=== PATIENT | male | born 1955 | race Caucasian/White ===

== ENCOUNTER 2016-12-08 01:18 | Inpatient (IN) | payer OTHER ==
[~2016-12-08] VITALS: Ht 160 cm; Wt 59.0 kg
[2016-12-08] VITALS (10 sets, daily range): BP systolic 102–172; BP diastolic 53–92; PULSE 76–96; RESP 17–19; Ht 160 cm; Wt 59.0 kg
[~2016-12-08 01:18] MED LIST: ATOR40TA68 PO; CARV3.1260 PO; CLOP75TA27 PO; GABA300C16 PO; METF-480 PO; NITR0.4T6 SL; OMEP20CA9 PO; QUIN40TA PO; SITA100T8 PO
--- NOTE | 2016-12-08 01:37 | ERA ---
ER Documentation Chief Complaint Date/Time DATE: 12/08/16 TIME: 01:36 Chief Complaint chest pain HPI The patient is a 61-year-old male, presenting to the ER because of left-sided chest pain that began about 11:30 PM while he was laying down, 02/14. He then took 3 nitroglycerin with relief however her chest pain came back. Has similar symptoms previously last year when he was found to have TIA. He also complained of bitemporal and diffuse headache that began about the same time, . He denies fever, chills, syncope, near syncope, neck pain, chest pain with exertion or vomiting or diaphoresis. He also complained of intermittent epigastric abdominal pain for the last couple days but denied any abdominal pain at this time. He has increased stress at home, denies smoking or drinking Past medical history: Dyslipidemia, diabetes mellitus, hypertension, history of CVA with minimal left-sided weakness, anemia Past surgical history: Cholecystectomy ROS All systems reviewed and are negative except as per history of present illness. Medications Home Meds Active Scripts Clopidogrel Bisulfate (Clopidogrel) 75 Mg Tablet, 75 MG PO DAILY, #30 TAB Prov:CESAR RUSSELL MD 06/03/16 Atorvastatin* (Atorvastatin*) 40 Mg Tablet, 40 MG PO HS, #30 TAB Prov:CESAR RUSSELL MD 06/03/16 Nitroglycerin* (Nitroglycerin* SL) 0.4 Mg Tab.subl, 0.4 MG SL Q5MIN Y for CHEST PAIN, #30 BOTTLE Prov:NICOLA GILL MD 05/28/15 Reported Medications Carvedilol* (Carvedilol*) 3.125 Mg Tablet, 3.125 MG PO BID, #60 TAB 06/01/16 Gabapentin* (Gabapentin*) 300 Mg Capsule, 300 MG PO BID, CAP 07/13/15 Sitagliptin* (Januvia*) 100 Mg Tablet, 100 MG PO DAILY, TAB 05/27/15 Omeprazole* (Prilosec*) 20 Mg Capsule.dr, 20 MG PO DAILY, CAP 05/27/15 Quinapril Hcl (Accupril) 40 Mg Tablet, 40 MG PO DAILY, TAB 05/27/15 Metformin* (Glucophage*) 850 Mg Tablet, 850 MG PO BID, TAB 05/27/15 Allergies Allergies: Coded Allergies: No Known Allergy (Unverified , 06/03/16) PMhx/Soc History of Surgery: Yes (CHOLECYSTECTOMY, HERNIA REPAIR, GALLSTONE REMOVAL) Anesthesia Reaction: No Hx Neurological Disorder: No Hx Respiratory Disorders: No Hx Cardiac Disorders: No Hx Psychiatric Problems: No Hx Miscellaneous Medical Probl: Yes (HTN, DM, HYPERLIPIDEMIA) Hx Alcohol Use: No Hx Substance Use: No Hx Tobacco Use: No Physical Exam Vitals Vital Signs Date Time Temp Pulse Resp B/P Pulse Ox O2 Delivery O2 Flow Rate FiO2 12/08/16 01:27 97.8 79 20 224/102 100 Physical Exam Const: No acute distress. Head: Atraumatic. Eyes: Normal Conjunctiva. ENT: Normal External Ears, Nose and Mouth. Neck: Full range of motion. No meningismus. Resp: Clear to auscultation bilaterally. Cardio: Regular rate and rhythm, no murmurs. Abd: Soft, non distended, normal bowel sounds, non tender. Skin: No petechiae or rashes. Back: No midline or flank tenderness. Ext: No cyanosis, or edema. Neur: Awake and alert. No focal deficit Psych: Normal Mood and Affect. Result Diagram: 12/08/16 0145 12/08/16 0145 Results 24 hrs Laboratory Tests Test 12/08/16 01:45 12/08/16 02:53 Activated Partial Thromboplast Time 27.5Sec Alanine Aminotransferase (ALT/SGPT) 25IU/L Albumin 3.6g/dl Albumin/Globulin Ratio 1.16 Alkaline Phosphatase 156IU/L Anion Gap 16 Aspartate Amino Transf (AST/SGOT) 18IU/L Basophils # 0.010^3/ul Basophils % 0.4% Blood Urea Nitrogen 32mg/dl Calcium Level 9.0mg/dl Carbon Dioxide Level 23mmol/L Chloride Level 102mmol/L Creatinine 1.77mg/dl Direct Bilirubin 0.00mg/dl Eosinophils # 0.310^3/ul Eosinophils % 4.5% Globulin 3.10g/dl Glucose Level 384mg/dl Hematocrit 30.1% Hemoglobin 10.9g/dl INR International Normalized Ratio 0.97 Indirect Bilirubin 0.0mg/dl Lipase 23U/L Lymphocytes # 2.710^3/ul Lymphocytes % 38.1% Mean Corpuscular Hemoglobin 31.1pg Mean Corpuscular Hemoglobin Concent 36.2g/dl Mean Corpuscular Volume 86.0fl Mean Platelet Volume 10.9fl Monocytes # 0.610^3/ul Monocytes % 8.2% Neutrophils # 3.510^3/ul Neutrophils % 48.5% Nucleated Red Blood Cells # 0.010^3/ul Nucleated Red Blood Cells % 0.0/100WBC Platelet Count 80052^3/UL Potassium Level 4.1mmol/L Prothrombin Time 12.9Sec Prothrombin Time Ratio 1.0 Red Blood Count 3.5010^6/ul Red Cell Distribution Width 12.3% Sodium Level 137mmol/L Total Bilirubin 0.0mg/dl Total Protein 6.7g/dl Troponin I 0.027ng/ml White Blood Count 7.210^3/ul Bedside Urine Blood 1+ Bedside Urine Glucose (UA) 0.50% Bedside Urine Ketones (LAB) Trace Bedside Urine Leukocyte Esterase (L Negative Bedside Urine Nitrite (LAB) Negative Bedside Urine Protein (LAB) 3+ Bedside Urine pH (LAB) 5.5 Current Medications Medications (Trade) Dose Ordered Sig/Marilee Route PRN Reason Start Time Stop Time Status Last Admin Dose Admin Nitroglycerin (Nitroglycerin 2% Oint) 1 inch ONCE ONCE TD 12/08/16 02:00 12/08/16 02:01 DC 12/08/16 01:52 Aspirin (Aspirin) 325 mg ONCE ONCE PO 12/08/16 03:00 12/08/16 03:01 DC Procedures/MDM EKG: Read by emergency physician Rate/Rhythm: Normal Sinus Rhythm 75 beats/min QRS, ST, T-waves: No ST elevation, no T inversion Impression: Normal EKG [place] [id number] Radiology Main Line: [phone] DIAGNOSTIC IMAGING REPORT Patient: YAJAIRA KING : 1955 Age: 61 Sex: M MR #: [id number] DOS: 12/08/16 0145 Ordering MD: LING HOUSE MD Location: E/R Room/Bed: PROCEDURE: XR Chest. CLINICAL INDICATION: Abdominal pain. TECHNIQUE: Single frontal view of the chest was obtained COMPARISON: 06/01/2016. FINDINGS: The heart and mediastinum are within normal limits. The lungs are clear. There is no pleural effusion or pneumothorax. IMPRESSION: No acute disease. RPTAT: [facility] Physician Daniel Date Time Electronically viewed and signed by Physician Daniel on 12/08/2016 02:46 RS/ CC: LING HOUSE MD [place] [id number] Radiology Main Line: [phone] DIAGNOSTIC IMAGING REPORT Patient: YAJAIRA KING : 1955 Age: 61 Sex: M MR #: [id number] DOS: 12/08/16 0145 Ordering MD: LING HOUSE MD Location: E/R Room/Bed: PROCEDURE: CT head, without contrast. CLINICAL INDICATION: Headache. TECHNIQUE: Noncontrast CT examination of the head, with axial, sagittal and coronal reformatted images. Automated dose exposure control was employed. CTDI: 39.39 mGy and DLP: 634.23 mGy-cm. COMPARISON: 06/01/2016 FINDINGS: Chronic changes of atrophy and small vessel disease white matter. No acute hemorrhage. Subarachnoid spaces are substantially preserved and symmetric. Ventricles are unremarkable. No mass effect. Villalpando-white matter distinction is preserved without evident decreased attenuation to suggest acute or recent infarct. Sinuses and osseous structures are unremarkable. IMPRESSION: Chronic changes of atrophy and small vessel disease white matter, and otherwise , no acute process in the head RPTAT: [facility] Leobardo Silverman Physician Date Time Electronically viewed and signed by Leobardo Silverman Physician on 12/08/2016 02:55 RS/ CC: LING HOUSE MD MEDICAL MAKING DECISION: The patient is a 61-year-old male with multiple cardiac risk factors, presenting with acute chest pain that is concerning for acute ACS, acute kidney injury. He was treated with aspirin 325 mg p.o. and 1 inch of nitroglycerin ointment with good response. Blood pressure improved. The differential diagnoses considered include but are not limited to acute coronary syndrome, acute myocardial infarction, pericarditis, pulmonary embolism , aortic dissection, pneumonia, pleural effusion, pneumothorax, GERD, chest wall pain. Departure Diagnosis: Primary Impression: Chest pain Additional Impressions: Acute kidney injury Accelerated hypertension Anemia Condition: Stable Comments I discussed the findings with the patient. I discussed the patient with the on- call hospitalist Dr. Gill who was made aware of the lab, the treatment, the patient condition. The patient is admitted to telemetry at 3 AM LING HOUSE MD Dec 08, 2016 01:37
[2016-12-08] MEDS ORDERED: NITROGLYCERIN 2% 1 GM OINT PKT TD ONE (02:00)
[2016-12-08 02:25] LABS: ADD SCAN DIFF NO
[2016-12-08 02:29] LABS: BASOPHILS % 0.4 % (0.0-2.0); EOSINOPHILS # 0.3 10^3/ul (0.0-0.5); EOSINOPHILS % 4.5 % (0.0-7.0); HEMATOCRIT 30.1 % (42.0-52.0); HEMOGLOBIN 10.9 g/dl (14.0-18.0); LYMPHOCYTES # 2.7 10^3/ul (0.8-2.9); LYMPHOCYTES % 38.1 % (15.0-51.0); MEAN CORPUSCULAR HEMOGLOBIN 31.1 pg (29.0-33.0); MEAN CORPUSCULAR HGB CONC 36.2 g/dl (32.0-37.0); MEAN PLATELET VOLUME 10.9 fl (7.4-10.4); MONOCYTE # 0.6 10^3/ul (0.3-0.9); MONOCYTES % 8.2 % (0.0-11.0); NEUTROPHIL # 3.5 10^3/ul (1.6-7.5); NEUTROPHILS % 48.5 % (39.0-77.0); PLATELET COUNT 206 10^3/UL (140-415); RED CELL DISTRIBUTION WIDTH 12.3 % (11.5-14.5); WHITE BLOOD COUNT 7.2 10^3/ul (4.8-10.8)
[2016-12-08 02:37] LABS: INR 0.97; PROTIME 12.9 Sec (12.2-14.2)
[2016-12-08 02:38] LABS: PARTIAL THROMBOPLASTIN TIME 27.5 Sec (25.0-35.0)
[2016-12-08 02:40] LABS: ALBUMIN 3.6 g/dl (3.3-4.9)
[2016-12-08 02:41] LABS: POTASSIUM 4.1 mmol/L (3.5-5.1)
[2016-12-08 02:43] LABS: CREATININE 1.77 mg/dl (0.61-1.24)
[2016-12-08 02:44] LABS: ALBUMIN/GLOBULIN RATIO 1.16; TOTAL PROTEIN 6.7 g/dl (6.1-8.1)
--- NOTE | 2016-12-08 02:47 | RADRPT ---
PROCEDURE: XR Chest. CLINICAL INDICATION: Abdominal pain. TECHNIQUE: Single frontal view of the chest was obtained COMPARISON: 06/01/2016. FINDINGS: The heart and mediastinum are within normal limits. The lungs are clear. There is no pleural effusion or pneumothorax. IMPRESSION: No acute disease. RPTAT: [facility] Physician Daniel Date Time Electronically viewed and signed by Leobardo Silverman Physician on 12/08/2016 02:46 RS/
[2016-12-08 02:52] LABS: URINE BLOOD (Dip) POC 1+ (NEGATIVE)
[2016-12-08 02:55] LABS: TROPONIN-I 0.027 ng/ml (0.00-0.12)
--- NOTE | 2016-12-08 02:55 | RADRPT ---
PROCEDURE: CT head, without contrast. CLINICAL INDICATION: Headache. TECHNIQUE: Noncontrast CT examination of the head, with axial, sagittal and coronal reformatted im ages. Automated dose exposure control was employed. CTDI: 39.39 mGy and DLP: 634.23 mGy-cm. COMPARISON: 06/01/2016 FINDINGS: Chronic changes of atrophy and small vessel disease white matter. No acute hemorrhage. Subarachnoid spaces are substantially preserved and symmetric. Ventricles ar e unremarkable. No mass effect. Villalpando-white matter distinction is preserved without evident decreased attenuation t o suggest acute or recent infarct. Sinuses and osseous structures are unremarkable. IMPRESSION: Chronic changes of atrophy and small vessel disease white matter, and otherwise, no acute process in the head RPTAT: [facility] Physician Daniel Date Time Electronically viewed and signed by Physician Daniel on 12/08/2016 02:55 RS/
[2016-12-08] MEDS ORDERED: ASPIRIN 325 MG TAB PO ONE (03:00)
[2016-12-08] MEDS ORDERED: morphine 4 MG/ML VIAL IV PRN (04:30)
[2016-12-08] MEDS ORDERED: GLUCOSE GEL 15 GRAM TUBE BUCCAL PRN (05:00)
[2016-12-08] MEDS ORDERED: DEXTROSE 50% 50 ML SYRINGE IV PRN ×2 (05:00)
[2016-12-08] MEDS ORDERED: GLUCOSE GEL 15 GRAM TUBE PO PRN ×2 (05:00)
[2016-12-08] MEDS ORDERED: GLUCAGON 1 MG INJ IM PRN (05:00)
[2016-12-08] MEDS: hydrALAzine 20 MG INJ IV PRN (06:10)
[2016-12-08] MEDS ORDERED: INSULIN GLARGINE [LANtus] 3 ML PEN SC SCH (08:00)
[2016-12-08] MEDS: GABAPENTIN 300 MG CAP PO SCH ×2 (08:18→22:44)
[2016-12-08] MEDS: ASPIRIN 81 MG TAB PO SCH (08:18)
[2016-12-08] MEDS: metFORMIN 850 MG TAB GTB SCH ×2 (08:18→17:28)
[2016-12-08] MEDS: CLOPIDOGREL 75 MG TAB PO SCH (08:18)
[2016-12-08] MEDS: HEPARIN 5,000 UNIT/0.5 ML SYG SC SCH ×2 (08:20→22:55)
[2016-12-08] MEDS: INSULIN ASPART [NOVOLOG] 3 ML PEN SC SCH ×4 (08:22→22:54)
[2016-12-08] MEDS ORDERED: INSULIN ASPART [NOVOLOG] 3 ML PEN SC SCH (09:00)
[2016-12-08] MEDS ORDERED: BENAZEPRIL 40 MG TAB PO SCH (09:00)
[2016-12-08] MEDS ORDERED: QUINAPRIL HCL 40 MG PO SCH (09:00)
[2016-12-08 09:12] LABS: ADD SCAN DIFF NO
[2016-12-08 09:16] LABS: BASOPHIL # 0.1 10^3/ul (0.0-0.1); BASOPHILS % 1.1 % (0.0-2.0); EOSINOPHILS # 0.2 10^3/ul (0.0-0.5); EOSINOPHILS % 5.1 % (0.0-7.0); HEMATOCRIT 29.7 % (42.0-52.0); HEMOGLOBIN 10.4 g/dl (14.0-18.0); LYMPHOCYTES # 1.5 10^3/ul (0.8-2.9); LYMPHOCYTES % 32.6 % (15.0-51.0); MEAN CORPUSCULAR HEMOGLOBIN 30.5 pg (29.0-33.0); MEAN CORPUSCULAR VOLUME 87.1 fl (82.0-101.0); MEAN PLATELET VOLUME 10.6 fl (7.4-10.4); MONOCYTE # 0.3 10^3/ul (0.3-0.9); NEUTROPHIL # 2.5 10^3/ul (1.6-7.5); NEUTROPHILS % 53.8 % (39.0-77.0); PLATELET COUNT 187 10^3/UL (140-415); RED BLOOD COUNT 3.41 10^6/ul (4.70-6.10); RED CELL DISTRIBUTION WIDTH 12.6 % (11.5-14.5); WHITE BLOOD COUNT 4.7 10^3/ul (4.8-10.8)
[2016-12-08 09:28] LABS: ALBUMIN 3.1 g/dl (3.3-4.9)
[2016-12-08 09:29] LABS: POTASSIUM 3.6 mmol/L (3.5-5.1)
[2016-12-08 09:30] LABS: PHOSPHORUS 3.2 mg/dl (2.5-4.9)
[2016-12-08 09:31] LABS: ALBUMIN/GLOBULIN RATIO 0.88; BILIRUBIN,INDIRECT 0.2 mg/dl (0-1.1); BILIRUBIN,TOTAL 0.2 mg/dl (0.2-1.3); CHOL/HDL RATIO 3.7 RATIO; CREATININE 1.48 mg/dl (0.61-1.24); MAGNESIUM 1.8 mg/dl (1.7-2.5); TOTAL PROTEIN 6.6 g/dl (6.1-8.1)
[2016-12-08 09:32] LABS: CALCIUM 8.8 mg/dl (8.4-10.2)
--- NOTE | 2016-12-08 12:19 | HP ---
Date/Time of Note Date/Time of Note DATE: 12/08/16 TIME: 12:17 Assessment/Plan VTE Prophylaxis VTE Prophylaxis Intervention: heparin Lines/Catheters IV Catheter Type (from Nrsg): Saline Lock Assessment/Plan Assessment/Plan 1. Chest pain, r/o ACS - oxygen, BB, and PRN NTG and morphine - trend trops - f/u 2D-echo - cardiology consult 2. Hypertensive Urgency - adjust BP meds for better control 3. history of CVA with minimal left-sided weakness - cont anti-platelets 4. Presumed Acute on CKD - monitor closely - nephrology consult and renal consult as needed 5. Diabetes:poorly controlled - pt reported non-compliance with meds saying he forgets sometimes. this applies to his BP meds as well. - Adjust insulin as needed 6. Dyslipidemia - cont med - check lipid profile HPI/ROS Admit Date/Time Admit Date/Time Dec 08, 2016 at 03:03 Hx of Present Illness The patient is a 61-year-old male,with hx of Dyslipidemia, diabetes mellitus, hypertension, history of CVA with minimal left-sided weakness, anemia presenting to the ER because of left-sided chest pain that began about 11:30 PM while he was laying down, 02/14. He then took 3 nitroglycerin with relief however her chest pain came back. Has similar symptoms previously last year when he was found to have TIA. He also complained of bitemporal and diffuse headache that began about the same time, 03/17. He denies fever, chills, syncope , near syncope, neck pain, chest pain with exertion or vomiting or diaphoresis. He also complained of intermittent epigastric abdominal pain for the last couple days but denied any abdominal pain at this time. He has increased stress at home, denies smoking or drinking. In ER, BP was elevated 224/101. trops x 1 neg and EKG with no ST-T wav abnormalities. . PMH/Family/Social Past Surgical History Past Surgical Hx: cholecystectomy, other Social History Smoking Status: Never smoker Exam/Review of Systems Vital Signs Vitals Vital Signs Date Time Temp Pulse Resp B/P Pulse Ox O2 Delivery O2 Flow Rate FiO2 12/08/16 11:33 97.4 81 18 102/53 98 12/08/16 03:47 Room Air Intake and Output 12/07/16 12/07/16 12/08/16 15:00 23:00 07:00 Intake Total 100 ml Balance 100 ml Exam Constitutional: alert, oriented, well developed Head: atraumatic, normocephalic Eyes: EOMI, PERRL Respiratory: clear to auscultation, normal air movement Cardiovascular: nl pulses, regular rate and rhythm Gastrointestinal: non-tender, soft Extremities: normal pulses Labs Result Diagram: 12/08/1653 12/08/16 0853 Medications Medications Current Medications Aspirin (Aspirin) 81 mg DAILY PO Last administered on 12/08/16 08:18; Admin Dose 81 MG; Start 12/08/16 at 09:00 Hydralazine HCl (Apresoline) 10 mg Q6H PRN IV HTN Last administered on 06:10; Admin Dose 10 MG; Start 12/08/16 at 04:30 Morphine Sulfate (morphine) 3 mg Q4H PRN IV PAIN; Start 12/08/16 at 04:30 Heparin Sodium (Porcine) (Heparin (5000 Units/0.5 ml)) 5,000 unit BID SC Last administered on 12/08/16 08:20; Admin Dose 5,000 UNIT; Start 12/08/16 at 09:00 Insulin Glargine (Lantus) 10 unit DAILY@08 SC Last administered on 12/08/16 08: 24; Admin Dose 10 UNIT; Start 12/08/16 at 08:00 Miscellaneous Information 1 ea NOTE XX ; Start 12/08/16 at 05:00 Glucose (Glutose) 15 gm Q15M PRN PO DECREASED GLUCOSE; Start 12/08/16 at 05:00 Glucose (Glutose) 22.5 gm Q15M PRN PO DECREASED GLUCOSE; Start 12/08/16 at 05:00 Dextrose (D50w Syringe) 25 ml Q15M PRN IV DECREASED GLUCOSE; Start 12/08/16 at 05:00 Dextrose (D50w Syringe) 50 ml Q15M PRN IV DECREASED GLUCOSE; Start 12/08/16 at 05:00 Glucagon (Glucagen) 1 mg Q15M PRN IM DECREASED GLUCOSE; Start 12/08/16 at 05:00 Glucose (Glutose) 15 gm Q15M PRN BUCCAL DECREASED GLUCOSE; Start 12/08/16 at 05: 00 Diagnostic Test (Pha) (Accucheck) 1 ea 02 XX ; Start 12/09/16 at 02:00 Atorvastatin Calcium (Lipitor) 40 mg HS PO ; Start 12/08/16 at 21:00 Gabapentin (Neurontin) 300 mg BID PO Last administered on 12/08/16 08:18; Admin Dose 300 MG; Start 12/08/16 at 09:00 Carvedilol (Coreg) 6.25 mg BID PO Last administered on 12/08/16 08:18; Admin Dose 6.25 MG; Start 12/08/16 at 09:00 Clopidogrel Bisulfate (plaVIX) 75 mg DAILY PO Last administered on 12/08/16 08: 18; Admin Dose 75 MG; Start 12/08/16 at 09:00 Benazepril HCl (Lotensin) 40 mg DAILY PO ; Start 12/08/16 at 09:00 NICOLA GILL MD Dec 08, 2016 12:19
--- NOTE | 2016-12-08 13:46 | PN ---
Date/Time of Note Date/Time of Note DATE: 12/08/16 TIME: 13:38 Assessment/Plan VTE Prophylaxis VTE Prophylaxis Intervention: heparin Lines/Catheters IV Catheter Type (from Nrsg): Saline Lock Assessment/Plan Assessment/Plan 1. Chest pain, r/o ACS, follow up with troponin/echo, cardiology consultation 2. Hypertensive Urgency, improved 3. history of CVA with minimal left-sided weakness, cont anti-platelets 4. Acute on CKD, follow up with BMP 5. Diabetes:poorly controlled, noncompliance, on metformin and insulin 6. Dyslipidemia, on lipitor 7. Normocytic anemia, CKD related, follow up with CBC 8. DVT prophylaxis: heparin Subjective 24 Hr Interval Summary Free Text/Dictation intermittent left sided chest pain since 9 am Exam/Review of Systems Vital Signs Vitals Vital Signs Date Time Temp Pulse Resp B/P Pulse Ox O2 Delivery O2 Flow Rate FiO2 12/08/16 12:35 76 12/08/16 11:33 97.4 18 102/53 98 12/08/16 03:47 Room Air Intake and Output 12/07/16 12/07/16 12/08/16 15:00 23:00 07:00 Intake Total 100 ml Balance 100 ml Exam Constitutional: alert, oriented, well developed Psych: nl mood/affect, no complaints Head: atraumatic, normocephalic Eyes: EOMI, PERRL, nl conjunctiva, nl lids ENMT: mucosa pink and moist, nl external ears & nose, nl lips & teeth, nl nasal mucosa & septum Neck: non-tender, supple Respiratory: clear to auscultation, normal air movement, No congested cough, No crackles/rales, No diminished breath sounds, No intercostal retraction, No labored breathing, No other, No respirations, No tactile fremitus, No wheezing Cardiovascular: nl pulses, regular rate and rhythm, No S3, No S4, No bruits, No diastolic murmur, No edema, No gallop, No irregular rhythm, No jugular venous distention (JVD), No murmurs/extra sounds, No other, No rub, No systolic murmur Gastrointestinal: nl liver, spleen, non-tender, soft, No ascites, No bowel sounds, No distended, No firm, No hepatomegaly, No mass , No other, No rebound or guarding, No splenomegaly, No surgical scars, No tender Musculoskeletal: nl extremities to inspection Extremities: normal pulses, No calf tenderness, No clubbing, No cyanosis, No edema, No other, No palpable cord, No pitting pedal edema, No tenderness Neurological: RETORT FEEDER GROUND BONE II-XII intact, nl mental status, nl speech, other (mildly weakness on left) Skin: nl turgor Lymph: nl lymph nodes Results Result Diagram: 12/08/16 0853 12/08/16 1228 Results 24 hrs Laboratory Tests Test 12/08/16 01:45 12/08/16 02:53 12/08/16 08:01 12/08/16 08:53 Activated Partial Thromboplast Time 27.5 Alanine Aminotransferase (ALT/SGPT) 25 22 Albumin 3.6 3.1 L Albumin/Globulin Ratio 1.16 0.88 Alkaline Phosphatase 156 H 132 H Anion Gap 16 17 H Aspartate Amino Transf (AST/SGOT) 18 16 Basophils # 0.0 0.1 Basophils % 0.4 1.1 Blood Urea Nitrogen 32 H 30 H Calcium Level 9.0 8.8 Carbon Dioxide Level 23 21 Chloride Level 102 104 Creatinine 1.77 H 1.48 H Direct Bilirubin 0.00 0.00 Eosinophils # 0.3 0.2 Eosinophils % 4.5 5.1 Globulin 3.10 3.50 H Glucose Level 384 H 405 *H Hematocrit 30.1 L 29.7 L Hemoglobin 10.9 L 10.4 L INR International Normalized Ratio 0.97 Indirect Bilirubin 0.0 0.2 Lipase 23 Lymphocytes # 2.7 1.5 Lymphocytes % 38.1 32.6 Mean Corpuscular Hemoglobin 31.1 30.5 Mean Corpuscular Hemoglobin Concent 36.2 35.0 Mean Corpuscular Volume 86.0 87.1 Mean Platelet Volume 10.9 #H 10.6 H Monocytes # 0.6 0.3 Monocytes % 8.2 7.0 Neutrophils # 3.5 2.5 Neutrophils % 48.5 53.8 Nucleated Red Blood Cells # 0.0 0.0 Nucleated Red Blood Cells % 0.0 0.0 Platelet Count 206 187 Potassium Level 4.1 3.6 Prothrombin Time 12.9 Prothrombin Time Ratio 1.0 Red Blood Count 3.50 L 3.41 L Red Cell Distribution Width 12.3 12.6 Sodium Level 137 138 Total Bilirubin 0.0 L 0.2 Total Protein 6.7 6.6 Troponin I 0.027 < 0.012 White Blood Count 7.2 # 4.7 #L Bedside Urine Blood 1+ H Bedside Urine Glucose (UA) 0.50% H Bedside Urine Ketones (LAB) Trace H Bedside Urine Leukocyte Esterase (L Negative Bedside Urine Nitrite (LAB) Negative Bedside Urine Protein (LAB) 3+ H Bedside Urine pH (LAB) 5.5 Bedside Glucose 468 *H Cholesterol Level 121 Cholesterol/HDL Ratio 3.7 HDL Cholesterol 32 Hemoglobin A1c 13.3 H LDL Cholesterol, Calculated 51 Magnesium Level 1.8 Phosphorus Level 3.2 Triglycerides Level 190 H Test 12/08/16 12:04 12/08/16 12:28 Bedside Glucose 435 *H Glucose Level 363 H Medications Medications Current Medications Aspirin (Aspirin) 81 mg DAILY PO Last administered on 12/08/16 08:18; Admin Dose 81 MG; Start 12/08/16 at 09:00 Hydralazine HCl (Apresoline) 10 mg Q6H PRN IV HTN Last administered on 06:10; Admin Dose 10 MG; Start 12/08/16 at 04:30 Morphine Sulfate (morphine) 3 mg Q4H PRN IV PAIN; Start 12/08/16 at 04:30 Heparin Sodium (Porcine) (Heparin (5000 Units/0.5 ml)) 5,000 unit BID SC Last administered on 12/08/16 08:20; Admin Dose 5,000 UNIT; Start 12/08/16 at 09:00 Insulin Glargine (Lantus) 10 unit DAILY@08 SC Last administered on 12/08/16 08: 24; Admin Dose 10 UNIT; Start 12/08/16 at 08:00 Miscellaneous Information 1 ea NOTE XX ; Start 12/08/16 at 05:00 Glucose (Glutose) 15 gm Q15M PRN PO DECREASED GLUCOSE; Start 12/08/16 at 05:00 Glucose (Glutose) 22.5 gm Q15M PRN PO DECREASED GLUCOSE; Start 12/08/16 at 05:00 Dextrose (D50w Syringe) 25 ml Q15M PRN IV DECREASED GLUCOSE; Start 12/08/16 at 05:00 Dextrose (D50w Syringe) 50 ml Q15M PRN IV DECREASED GLUCOSE; Start 12/08/16 at 05:00 Glucagon (Glucagen) 1 mg Q15M PRN IM DECREASED GLUCOSE; Start 12/08/16 at 05:00 Glucose (Glutose) 15 gm Q15M PRN BUCCAL DECREASED GLUCOSE; Start 12/08/16 at 05: 00 Diagnostic Test (Pha) (Accucheck) 1 ea 02 XX ; Start 12/09/16 at 02:00 Atorvastatin Calcium (Lipitor) 40 mg HS PO ; Start 12/08/16 at 21:00 Gabapentin (Neurontin) 300 mg BID PO Last administered on 12/08/16 08:18; Admin Dose 300 MG; Start 12/08/16 at 09:00 Carvedilol (Coreg) 6.25 mg BID PO Last administered on 12/08/16 08:18; Admin Dose 6.25 MG; Start 12/08/16 at 09:00 Clopidogrel Bisulfate (plaVIX) 75 mg DAILY PO Last administered on 12/08/16 08: 18; Admin Dose 75 MG; Start 12/08/16 at 09:00 Benazepril HCl (Lotensin) 40 mg DAILY PO Last administered on 12/08/16 12:37; Admin Dose 40 MG; Start 12/08/16 at 09:00 NANNETTE CHRISTIANSON MD Dec 08, 2016 13:46
--- NOTE | 2016-12-08 14:00 | CONS ---
Date/Time of Note Date/Time of Note DATE: 12/08/16 TIME: 13:52 Assessment/Plan Assessment/Plan Additional Assessment/Plan Hypertension urgency, improved Preserved ejection fraction Normal cardiac nuclear perfusion study January 2016 Diabetes, uncontrolled Hypertension, uncontrolled History of TIA -Patient with systolic blood pressure above 200. Pressure has improved since admission and with medications. Would continue Coreg, adjust RADHA inhibitor to twice daily dosing for better 24-hour coverage. Given his risk factors, would continue antiplatelet therapy and statin therapy if no contraindication. Patient's chest discomfort is reproducible with palpation. He had a nuclear cardiac perfusion study in January 2016 with no evidence of ischemia. First 2 sets of cardiac enzymes remain negative and ECG without any significant ischemic abnormalities. Awaiting third set of cardiac enzymes. Consultation Date/Type/Reason Admit Date/Time Dec 08, 2016 at 03:03 Type of Consultation: cv Reason for Consultation Hypertension and chest pain Hx of Present Illness This is a 61-year-old male with past medical history of diabetes, hypertension, dyslipidemia who presents with multiple complaints. Patient states last night, he had issues with headache and cloudy vision. He checked his blood pressure and was above 200. Afterwards she became anxious. Denies any shortness of breath but then developed neck pain, bilateral shoulder pain and radiating to the left axilla. Symptoms were sharp like and occasionally pinpoint. He took sublingual nitroglycerin with mild improvement in headache but was still present. His blood pressure still remained above 200 so he came to the emergency room for evaluation and care. He does admit to poor blood pressure and diabetes control. His blood pressure can range anywhere from 130s to over 200 on a weekly basis. He has frequent episodes of neck and chest discomfort. Pain is usually worse with moving his arms, going from side to side. Pain can be present at rest and with activity. Denies any abdominal pain currently or nausea. He still complains of mild chest pain currently which is right at his nipple. The pain is worse when he pushes in this region. 12 point review of systems was performed with all pertinent positives and negatives mentioned above and all else is negative Psychological: nl mood/affect, no complaints Past Medical History Medical History: diabetes, high cholesterol, hypertension Past Surgical History Past Surgical Hx: cholecystectomy, other Social History Alcohol Use: none Smoking Status: Never smoker Other Social History Not working Exam/Review of Systems Vital Signs Vitals Vital Signs Date Time Temp Pulse Resp B/P Pulse Ox O2 Delivery O2 Flow Rate FiO2 12/08/16 12:35 76 12/08/16 11:33 97.4 18 102/53 98 12/08/16 03:47 Room Air Intake and Output 12/07/16 12/07/16 12/08/16 15:00 23:00 07:00 Intake Total 100 ml Balance 100 ml Exam No apparent distress Constitutional: alert, oriented Head: normocephalic Neck: other (Pain of paracervical muscles with head flexion), supple Respiratory: clear to auscultation, normal air movement, other (No rales rhonchi or wheezing) Cardiovascular: other (S1-S2 heard), regular rate and rhythm Gastrointestinal: bowel sounds, non-tender, other (No guarding), soft Musculoskeletal: other (Pain with palpation bilateral shoulders, left side of chest wall and with left arm movements) Extremities: other (No edema or cyanosis) Results Result Diagram: 12/08/16 0853 12/08/16 1228 Results 24 hrs Laboratory Tests Test 12/08/16 01:45 12/08/16 02:53 12/08/16 08:01 12/08/16 08:53 Activated Partial Thromboplast Time 27.5 Alanine Aminotransferase (ALT/SGPT) 25 22 Albumin 3.6 3.1 L Albumin/Globulin Ratio 1.16 0.88 Alkaline Phosphatase 156 H 132 H Anion Gap 16 17 H Aspartate Amino Transf (AST/SGOT) 18 16 Basophils # 0.0 0.1 Basophils % 0.4 1.1 Blood Urea Nitrogen 32 H 30 H Calcium Level 9.0 8.8 Carbon Dioxide Level 23 21 Chloride Level 102 104 Creatinine 1.77 H 1.48 H Direct Bilirubin 0.00 0.00 Eosinophils # 0.3 0.2 Eosinophils % 4.5 5.1 Globulin 3.10 3.50 H Glucose Level 384 H 405 *H Hematocrit 30.1 L 29.7 L Hemoglobin 10.9 L 10.4 L INR International Normalized Ratio 0.97 Indirect Bilirubin 0.0 0.2 Lipase 23 Lymphocytes # 2.7 1.5 Lymphocytes % 38.1 32.6 Mean Corpuscular Hemoglobin 31.1 30.5 Mean Corpuscular Hemoglobin Concent 36.2 35.0 Mean Corpuscular Volume 86.0 87.1 Mean Platelet Volume 10.9 #H 10.6 H Monocytes # 0.6 0.3 Monocytes % 8.2 7.0 Neutrophils # 3.5 2.5 Neutrophils % 48.5 53.8 Nucleated Red Blood Cells # 0.0 0.0 Nucleated Red Blood Cells % 0.0 0.0 Platelet Count 206 187 Potassium Level 4.1 3.6 Prothrombin Time 12.9 Prothrombin Time Ratio 1.0 Red Blood Count 3.50 L 3.41 L Red Cell Distribution Width 12.3 12.6 Sodium Level 137 138 Total Bilirubin 0.0 L 0.2 Total Protein 6.7 6.6 Troponin I 0.027 < 0.012 White Blood Count 7.2 # 4.7 #L Bedside Urine Blood 1+ H Bedside Urine Glucose (UA) 0.50% H Bedside Urine Ketones (LAB) Trace H Bedside Urine Leukocyte Esterase (L Negative Bedside Urine Nitrite (LAB) Negative Bedside Urine Protein (LAB) 3+ H Bedside Urine pH (LAB) 5.5 Bedside Glucose 468 *H Cholesterol Level 121 Cholesterol/HDL Ratio 3.7 HDL Cholesterol 32 Hemoglobin A1c 13.3 H LDL Cholesterol, Calculated 51 Magnesium Level 1.8 Phosphorus Level 3.2 Triglycerides Level 190 H Test 12/08/16 12:04 12/08/16 12:28 Bedside Glucose 435 *H Glucose Level 363 H Medications Medications Current Medications Aspirin (Aspirin) 81 mg DAILY PO Last administered on 12/08/16 08:18; Admin Dose 81 MG; Start 12/08/16 at 09:00 Hydralazine HCl (Apresoline) 10 mg Q6H PRN IV HTN Last administered on 06:10; Admin Dose 10 MG; Start 12/08/16 at 04:30 Morphine Sulfate (morphine) 3 mg Q4H PRN IV PAIN; Start 12/08/16 at 04:30 Heparin Sodium (Porcine) (Heparin (5000 Units/0.5 ml)) 5,000 unit BID SC Last administered on 12/08/16 08:20; Admin Dose 5,000 UNIT; Start 12/08/16 at 09:00 Insulin Glargine (Lantus) 10 unit DAILY@08 SC Last administered on 12/08/16 08: 24; Admin Dose 10 UNIT; Start 12/08/16 at 08:00 Miscellaneous Information 1 ea NOTE XX ; Start 12/08/16 at 05:00 Glucose (Glutose) 15 gm Q15M PRN PO DECREASED GLUCOSE; Start 12/08/16 at 05:00 Glucose (Glutose) 22.5 gm Q15M PRN PO DECREASED GLUCOSE; Start 12/08/16 at 05:00 Dextrose (D50w Syringe) 25 ml Q15M PRN IV DECREASED GLUCOSE; Start 12/08/16 at 05:00 Dextrose (D50w Syringe) 50 ml Q15M PRN IV DECREASED GLUCOSE; Start 12/08/16 at 05:00 Glucagon (Glucagen) 1 mg Q15M PRN IM DECREASED GLUCOSE; Start 12/08/16 at 05:00 Glucose (Glutose) 15 gm Q15M PRN BUCCAL DECREASED GLUCOSE; Start 12/08/16 at 05: 00 Diagnostic Test (Pha) (Accucheck) 1 ea 02 XX ; Start 12/09/16 at 02:00 Atorvastatin Calcium (Lipitor) 40 mg HS PO ; Start 12/08/16 at 21:00 Gabapentin (Neurontin) 300 mg BID PO Last administered on 12/08/16 08:18; Admin Dose 300 MG; Start 12/08/16 at 09:00 Carvedilol (Coreg) 6.25 mg BID PO Last administered on 12/08/16 08:18; Admin Dose 6.25 MG; Start 12/08/16 at 09:00 Clopidogrel Bisulfate (plaVIX) 75 mg DAILY PO Last administered on 12/08/16 08: 18; Admin Dose 75 MG; Start 12/08/16 at 09:00 Benazepril HCl (Lotensin) 40 mg DAILY PO Last administered on 12/08/16 12:37; Admin Dose 40 MG; Start 12/08/16 at 09:00 Procedures Procedures ECG demonstrates sinus rhythm at 75 bpm, QRS 70 ms, no significant ischemic STT wave abnormalities Orestes Caicedo DO Dec 08, 2016 14:00
[2016-12-08] MEDS: ATORVASTATIN 40 MG TAB PO SCH (22:43)
[2016-12-09] VITALS (13 sets, daily range): BP systolic 116–182; BP diastolic 58–88; PULSE 61–84; RESP 14–18
[2016-12-09] MEDS: ACCUCHECK XX SCH (02:00)
[2016-12-09 07:46] LABS: ADD SCAN DIFF NO
[2016-12-09 07:56] LABS: BASOPHILS % 0.6 % (0.0-2.0); EOSINOPHILS # 0.3 10^3/ul (0.0-0.5); EOSINOPHILS % 6.1 % (0.0-7.0); HEMATOCRIT 29.1 % (42.0-52.0); HEMOGLOBIN 10.2 g/dl (14.0-18.0); LYMPHOCYTES # 1.4 10^3/ul (0.8-2.9); LYMPHOCYTES % 29.1 % (15.0-51.0); MEAN CORPUSCULAR HEMOGLOBIN 30.6 pg (29.0-33.0); MEAN CORPUSCULAR HGB CONC 35.1 g/dl (32.0-37.0); MEAN CORPUSCULAR VOLUME 87.4 fl (82.0-101.0); MEAN PLATELET VOLUME 10.6 fl (7.4-10.4); MONOCYTE # 0.4 10^3/ul (0.3-0.9); MONOCYTES % 7.3 % (0.0-11.0); NEUTROPHIL # 2.8 10^3/ul (1.6-7.5); NEUTROPHILS % 56.5 % (39.0-77.0); PLATELET COUNT 187 10^3/UL (140-415); RED BLOOD COUNT 3.33 10^6/ul (4.70-6.10); RED CELL DISTRIBUTION WIDTH 12.5 % (11.5-14.5); WHITE BLOOD COUNT 4.9 10^3/ul (4.8-10.8)
[2016-12-09 08:07] LABS: POTASSIUM 4.2 mmol/L (3.5-5.1)
[2016-12-09 08:09] LABS: CREATININE 1.35 mg/dl (0.61-1.24)
[2016-12-09 08:10] LABS: CALCIUM 8.7 mg/dl (8.4-10.2)
[2016-12-09] MEDS: ASPIRIN 81 MG TAB PO SCH (09:17)
[2016-12-09] MEDS: metFORMIN 850 MG TAB GTB SCH ×2 (09:18→17:22)
[2016-12-09] MEDS: BENAZEPRIL 20 MG TAB PO SCH ×2 (09:19→21:42)
[2016-12-09] MEDS: GABAPENTIN 300 MG CAP PO SCH ×2 (09:19→21:41)
[2016-12-09] MEDS: CLOPIDOGREL 75 MG TAB PO SCH (09:19)
[2016-12-09] MEDS: INSULIN ASPART [NOVOLOG] 3 ML PEN SC SCH ×6 (09:21→21:00)
[2016-12-09] MEDS: HEPARIN 5,000 UNIT/0.5 ML SYG SC SCH ×2 (09:22→21:45)
[2016-12-09] MEDS ORDERED: INSULIN ASPART [NOVOLOG] 3 ML PEN SC ONE (12:30)
[2016-12-09] MEDS: hydrALAzine 20 MG INJ IV PRN (12:32)
--- NOTE | 2016-12-09 14:41 | CONS ---
Date/Time of Note Date/Time of Note DATE: 12/09/16 TIME: 14:38 Assessment/Plan Assessment/Plan Additional Assessment/Plan Hypertension urgency Preserved ejection fraction Normal cardiac nuclear perfusion study January 2016 Diabetes, uncontrolled History of TIA Hypertensive Increased Coreg started on Norvasc Continue Benazepril Continue ASA, Plavix Continue Lipitor Continue Insulin Consultation Date/Type/Reason Admit Date/Time Dec 08, 2016 at 03:03 Psychological: nl mood/affect, no complaints Past Medical History Medical History: diabetes, high cholesterol, hypertension Past Surgical History Past Surgical Hx: cholecystectomy, other Social History Alcohol Use: none Smoking Status: Never smoker Exam/Review of Systems Vital Signs Vitals Vital Signs Date Time Temp Pulse Resp B/P Pulse Ox O2 Delivery O2 Flow Rate FiO2 12/09/16 12:59 80 129/68 12/09/16 11:44 98.1 18 99 12/09/16 04:00 Room Air Intake and Output 12/08/16 12/08/16 12/09/16 15:00 23:00 07:00 Intake Total 1100 ml 800 ml Output Total 900 ml Balance 200 ml 800 ml Exam Constitutional: alert, oriented Head: atraumatic, normocephalic Neck: non-tender, supple Respiratory: clear to auscultation Cardiovascular: regular rate and rhythm Gastrointestinal: nl liver, spleen, non-tender, soft Extremities: normal pulses Results Result Diagram: 12/09/16 0712/09/16 0705 Results 24 hrs Laboratory Tests Test 12/08/16 17:10 12/08/16 22:50 12/09/16 02:34 12/09/16 07:05 Bedside Glucose 88 217 250 H Anion Gap 15 Basophils # 0.0 Basophils % 0.6 Blood Urea Nitrogen 33 H Calcium Level 8.7 Carbon Dioxide Level 21 Chloride Level 105 Creatinine 1.35 H Eosinophils # 0.3 Eosinophils % 6.1 Glucose Level 279 H Hematocrit 29.1 L Hemoglobin 10.2 L Lymphocytes # 1.4 Lymphocytes % 29.1 Mean Corpuscular Hemoglobin 30.6 Mean Corpuscular Hemoglobin Concent 35.1 Mean Corpuscular Volume 87.4 Mean Platelet Volume 10.6 H Monocytes # 0.4 Monocytes % 7.3 Neutrophils # 2.8 Neutrophils % 56.5 Nucleated Red Blood Cells # 0.0 Nucleated Red Blood Cells % 0.0 Platelet Count 187 Potassium Level 4.2 Red Blood Count 3.33 L Red Cell Distribution Width 12.5 Sodium Level 137 White Blood Count 4.9 Test 12/09/16 07:48 12/09/16 11:56 Bedside Glucose 309 H 413 *H Medications Medications Current Medications Aspirin (Aspirin) 81 mg DAILY PO Last administered on 12/09/16 09:17; Admin Dose 81 MG; Start 12/08/16 at 09:00 Hydralazine HCl (Apresoline) 10 mg Q6H PRN IV HTN Last administered on 12:32; Admin Dose 10 MG; Start 12/08/16 at 04:30 Morphine Sulfate (morphine) 3 mg Q4H PRN IV PAIN; Start 12/08/16 at 04:30 Heparin Sodium (Porcine) (Heparin (5000 Units/0.5 ml)) 5,000 unit BID SC Last administered on 12/09/16 09:22; Admin Dose 5,000 UNIT; Start 12/08/16 at 09:00 Miscellaneous Information 1 ea NOTE XX ; Start 12/08/16 at 05:00 Glucose (Glutose) 15 gm Q15M PRN PO DECREASED GLUCOSE; Start 12/08/16 at 05:00 Glucose (Glutose) 22.5 gm Q15M PRN PO DECREASED GLUCOSE; Start 12/08/16 at 05:00 Dextrose (D50w Syringe) 25 ml Q15M PRN IV DECREASED GLUCOSE; Start 12/08/16 at 05:00 Dextrose (D50w Syringe) 50 ml Q15M PRN IV DECREASED GLUCOSE; Start 12/08/16 at 05:00 Glucagon (Glucagen) 1 mg Q15M PRN IM DECREASED GLUCOSE; Start 12/08/16 at 05:00 Glucose (Glutose) 15 gm Q15M PRN BUCCAL DECREASED GLUCOSE; Start 12/08/16 at 05: 00 Diagnostic Test (Pha) (Accucheck) 1 ea 02 XX Last administered on 12/09/16 02: 00; Admin Dose 1 EA; Start 12/09/16 at 02:00 Atorvastatin Calcium (Lipitor) 40 mg HS PO Last administered on 12/08/16 22:43 ; Admin Dose 40 MG; Start 12/08/16 at 21:00 Gabapentin (Neurontin) 300 mg BID PO Last administered on 12/09/16 09:19; Admin Dose 300 MG; Start 12/08/16 at 09:00 Carvedilol (Coreg) 6.25 mg BID PO Last administered on 12/09/16 09:18; Admin Dose 6.25 MG; Start 12/08/16 at 09:00 Clopidogrel Bisulfate (plaVIX) 75 mg DAILY PO Last administered on 12/09/16 09: 19; Admin Dose 75 MG; Start 12/08/16 at 09:00 Benazepril HCl (Lotensin) 20 mg BID PO Last administered on 12/09/16 09:19; Admin Dose 20 MG; Start 12/09/16 at 09:00 Insulin Glargine (Lantus) 25 unit DAILY@08 SC ; Start 12/10/16 at 08:00 YAHIR HIGUERA M.D. Dec 09, 2016 14:41
[2016-12-09] MEDS: ATORVASTATIN 40 MG TAB PO SCH (21:41)
[2016-12-10] VITALS (13 sets, daily range): BP systolic 110–179; BP diastolic 56–83; PULSE 65–87; RESP 14–20
[2016-12-10] MEDS: ACCUCHECK XX SCH (02:00)
[2016-12-10 06:23] LABS: ADD SCAN DIFF NO
[2016-12-10 06:52] LABS: BASOPHILS % 0.7 % (0.0-2.0); EOSINOPHILS # 0.4 10^3/ul (0.0-0.5); EOSINOPHILS % 6.8 % (0.0-7.0); HEMATOCRIT 27.9 % (42.0-52.0); HEMOGLOBIN 9.7 g/dl (14.0-18.0); LYMPHOCYTES % 35.7 % (15.0-51.0); MEAN CORPUSCULAR HEMOGLOBIN 30.8 pg (29.0-33.0); MEAN CORPUSCULAR HGB CONC 34.8 g/dl (32.0-37.0); MEAN CORPUSCULAR VOLUME 88.6 fl (82.0-101.0); MEAN PLATELET VOLUME 10.8 fl (7.4-10.4); MONOCYTE # 0.5 10^3/ul (0.3-0.9); NEUTROPHIL # 2.7 10^3/ul (1.6-7.5); NEUTROPHILS % 48.4 % (39.0-77.0); PLATELET COUNT 175 10^3/UL (140-415); RED BLOOD COUNT 3.15 10^6/ul (4.70-6.10); RED CELL DISTRIBUTION WIDTH 12.6 % (11.5-14.5); WHITE BLOOD COUNT 5.6 10^3/ul (4.8-10.8)
[2016-12-10 07:52] LABS: POTASSIUM 4.3 mmol/L (3.5-5.1)
[2016-12-10 07:54] LABS: CREATININE 1.2 mg/dl (0.61-1.24)
[2016-12-10 07:55] LABS: CALCIUM 8.6 mg/dl (8.4-10.2)
[2016-12-10] MEDS: ASPIRIN 81 MG TAB PO SCH (08:00)
[2016-12-10] MEDS: metFORMIN 850 MG TAB GTB SCH ×2 (08:00→17:23)
[2016-12-10] MEDS: BENAZEPRIL 20 MG TAB PO SCH ×2 (08:00→21:05)
[2016-12-10] MEDS: CLOPIDOGREL 75 MG TAB PO SCH (08:00)
[2016-12-10] MEDS ORDERED: INSULIN GLARGINE [LANtus] 3 ML PEN SC SCH ×2 (08:00)
[2016-12-10] MEDS: GABAPENTIN 300 MG CAP PO SCH ×2 (08:00→21:05)
[2016-12-10] MEDS: INSULIN ASPART [NOVOLOG] 3 ML PEN SC SCH ×7 (08:03→21:00)
[2016-12-10] MEDS: HEPARIN 5,000 UNIT/0.5 ML SYG SC SCH ×2 (08:04→21:09)
--- NOTE | 2016-12-10 11:35 | PN ---
Date/Time of Note Date/Time of Note LATE ENTRY DATE: 12/09/16 Assessment/Plan VTE Prophylaxis VTE Prophylaxis Intervention: heparin Lines/Catheters IV [facility] Saline [facility] Urinary Cath still in place: No Assessment/Plan Chief Complaint/Hosp Course Assessment and plan 1. Chest pain. Follow-up with echocardiogram. Continue optimization with cardiovascular medications. Continue with accounts receivable administrator recommendations 2. Hypertensive urgency continue on antihypertensives. Continue with cardiology recommendations. We'll monitor and adjust as needed 3. History of CVA. Continue antiplatelet therapy 4. CKD. Monitor renal panel. Avoid nephrotoxic medications 5. Diabetes. Continue insulin regimen. Will adjust as needed 6. Dyslipidemia. Continue on statin DVT prophylaxis: Heparin Disposition and plan: Continue to monitor. Follow-up with accounts receivable administrator recommendations. Discharge when medically stable and cleared by consultants Discussed plan care of Dr. Thayer Problems: Subjective 24 Hr Interval Summary Free Text/Dictation no s/s of distress Exam/Review of Systems Vital Signs Vitals Vital Signs Date Time Temp Pulse Resp B/P Pulse Ox O2 Delivery O2 Flow Rate FiO2 12/10/16 08:21 97.9 69 17 159/78 97 12/10/16 04:10 Room Air Intake and Output 12/09/16 12/09/16 12/10/16 15:00 23:00 07:00 Intake Total 1020 ml 400 ml Balance 1020 ml 400 ml Exam General: No acute signs or symptoms of distress Eyes: pupils equal round, Anicteric sclera Neck: Supple nontender, no JVD Cardiac: S1, S2 auscultated, regular rhythm and rate Pulmonary: No coarse rhonchi or breathing auscultated GI: Abdomen soft nontender nondistended, bowel sounds active Extremities: No edema bilateral lower extremities Skin: Clean dry and intact Neurologic: Alert to person place and time and situation Results Result Diagram: 12/10/16 0555 12/10/16 0555 Results 24 hrs Laboratory Tests Test 12/09/16 11:56 12/09/16 16:59 12/09/16 17:57 12/09/16 21:29 Bedside Glucose 413 *H 85 123 131 Test 12/10/16 05:55 12/10/16 07:13 Anion Gap 12 Basophils # 0.0 Basophils % 0.7 Blood Urea Nitrogen 29 H Calcium Level 8.6 Carbon Dioxide Level 24 Chloride Level 104 Creatinine 1.20 Eosinophils # 0.4 Eosinophils % 6.8 Glucose Level 209 Hematocrit 27.9 L Hemoglobin 9.7 L Lymphocytes # 2.0 Lymphocytes % 35.7 Mean Corpuscular Hemoglobin 30.8 Mean Corpuscular Hemoglobin Concent 34.8 Mean Corpuscular Volume 88.6 Mean Platelet Volume 10.8 H Monocytes # 0.5 Monocytes % 8.0 Neutrophils # 2.7 Neutrophils % 48.4 Nucleated Red Blood Cells # 0.0 Nucleated Red Blood Cells % 0.0 Platelet Count 175 Potassium Level 4.3 Red Blood Count 3.15 L Red Cell Distribution Width 12.6 Sodium Level 136 White Blood Count 5.6 Bedside Glucose 255 H Medications Medications Current Medications Aspirin (Aspirin) 81 mg DAILY PO Last administered on 12/10/16 08:00; Admin Dose 81 MG; Start 12/08/16 at 09:00 Hydralazine HCl (Apresoline) 10 mg Q6H PRN IV HTN Last administered on 12:32; Admin Dose 10 MG; Start 12/08/16 at 04:30 Morphine Sulfate (morphine) 3 mg Q4H PRN IV PAIN; Start 12/08/16 at 04:30 Heparin Sodium (Porcine) (Heparin (5000 Units/0.5 ml)) 5,000 unit BID SC Last administered on 12/10/16 08:04; Admin Dose 5,000 UNIT; Start 12/08/16 at 09:00 Miscellaneous Information 1 ea NOTE XX ; Start 12/08/16 at 05:00 Glucose (Glutose) 15 gm Q15M PRN PO DECREASED GLUCOSE; Start 12/08/16 at 05:00 Glucose (Glutose) 22.5 gm Q15M PRN PO DECREASED GLUCOSE; Start 12/08/16 at 05:00 Dextrose (D50w Syringe) 25 ml Q15M PRN IV DECREASED GLUCOSE; Start 12/08/16 at 05:00 Dextrose (D50w Syringe) 50 ml Q15M PRN IV DECREASED GLUCOSE; Start 12/08/16 at 05:00 Glucagon (Glucagen) 1 mg Q15M PRN IM DECREASED GLUCOSE; Start 12/08/16 at 05:00 Glucose (Glutose) 15 gm Q15M PRN BUCCAL DECREASED GLUCOSE; Start 12/08/16 at 05: 00 Diagnostic Test (Pha) (Accucheck) 1 ea 02 XX Last administered on 12/09/16 02: 00; Admin Dose 1 EA; Start 12/09/16 at 02:00 Atorvastatin Calcium (Lipitor) 40 mg HS PO Last administered on 12/09/16 21:41 ; Admin Dose 40 MG; Start 12/08/16 at 21:00 Gabapentin (Neurontin) 300 mg BID PO Last administered on 12/10/16 08:00; Admin Dose 300 MG; Start 12/08/16 at 09:00 Clopidogrel Bisulfate (plaVIX) 75 mg DAILY PO Last administered on 12/10/16 08: 00; Admin Dose 75 MG; Start 12/08/16 at 09:00 Benazepril HCl (Lotensin) 20 mg BID PO Last administered on 12/10/16 08:00; Admin Dose 20 MG; Start 12/09/16 at 09:00 Insulin Glargine (Lantus) 25 unit DAILY@08 SC Last administered on 12/10/16 08: 04; Admin Dose 25 UNIT; Start 12/10/16 at 08:00 Carvedilol (Coreg) 25 mg BID PO Last administered on 12/10/16 08:01; Admin Dose 25 MG; Start 12/09/16 at 15:00 ARPAN MCLEAN Dec 10, 2016 11:35
[2016-12-10] MEDS: LINAGLIPTIN 5 MG TABLET PO SCH (13:56)
--- NOTE | 2016-12-10 14:17 | PN ---
Date/Time of Note Date/Time of Note DATE: 12/10/16 TIME: 14:13 Assessment/Plan VTE Prophylaxis VTE Prophylaxis Intervention: heparin Lines/Catheters [facility] Saline Lock Urinary Cath still in place: No Assessment/Plan Chief Complaint/Hosp Course Assessment and plan 1. Chest pain.. Continue optimization with cardiovascular medications. Continue with architectural engineer recommendations. Serial troponins negative 2. Hypertensive urgency continue on antihypertensives. Continue with cardiology recommendations. We'll monitor and adjust as needed. Improved at present 3. History of CVA. Continue antiplatelet therapy 4. CKD. Monitor renal panel. Avoid nephrotoxic medications 5. Diabetes. Remains uncontrolled. Tax Compliance Representative consulted 6. Dyslipidemia. Continue on statin DVT prophylaxis: Heparin Disposition and plan: Noted with uncontrolled blood glucose. Tax Compliance Representative consulted. We'll follow-up with recommendations Discussed plan care of Dr. Thayer Problems: Subjective 24 Hr Interval Summary Free Text/Dictation No current distress. Denies any chest pain Exam/Review of Systems Vital Signs Vitals Vital Signs Date Time Temp Pulse Resp B/P Pulse Ox O2 Delivery O2 Flow Rate FiO2 12/10/16 12:31 65 12/10/16 12:10 97.6 17 134/72 98 12/10/16 04:10 Room Air Intake and Output 12/09/16 12/09/16 12/10/16 15:00 23:00 07:00 Intake Total 1020 ml 400 ml Balance 1020 ml 400 ml Exam General: No acute signs or symptoms of distress Eyes: Pupils equal round Neck: No apparent JVD Cardiac: Remains in regular rate with S1-S2 auscultated Pulmonary: No adventitious lung sounds auscultated GI: Abdomen soft nontender nondistended Extremities: No edema bilateral lower extremities today Skin: Clean dry and intact Neurologic: Alert to person place and time and situation Results Result Diagram: 12/10/16 0555 12/10/16 0555 Results 24 hrs Laboratory Tests Test 12/09/16 16:59 12/09/16 17:57 12/09/16 21:29 12/10/16 05:55 Bedside Glucose 85 123 131 Anion Gap 12 Basophils # 0.0 Basophils % 0.7 Blood Urea Nitrogen 29 H Calcium Level 8.6 Carbon Dioxide Level 24 Chloride Level 104 Creatinine 1.20 Eosinophils # 0.4 Eosinophils % 6.8 Glucose Level 209 Hematocrit 27.9 L Hemoglobin 9.7 L Lymphocytes # 2.0 Lymphocytes % 35.7 Mean Corpuscular Hemoglobin 30.8 Mean Corpuscular Hemoglobin Concent 34.8 Mean Corpuscular Volume 88.6 Mean Platelet Volume 10.8 H Monocytes # 0.5 Monocytes % 8.0 Neutrophils # 2.7 Neutrophils % 48.4 Nucleated Red Blood Cells # 0.0 Nucleated Red Blood Cells % 0.0 Platelet Count 175 Potassium Level 4.3 Red Blood Count 3.15 L Red Cell Distribution Width 12.6 Sodium Level 136 White Blood Count 5.6 Test 12/10/16 07:13 12/10/16 11:44 Bedside Glucose 255 H 317 H Medications Medications Current Medications Aspirin (Aspirin) 81 mg DAILY PO Last administered on 12/10/16 08:00; Admin Dose 81 MG; Start 12/08/16 at 09:00 Hydralazine HCl (Apresoline) 10 mg Q6H PRN IV HTN Last administered on 12:32; Admin Dose 10 MG; Start 12/08/16 at 04:30 Morphine Sulfate (morphine) 3 mg Q4H PRN IV PAIN; Start 12/08/16 at 04:30 Heparin Sodium (Porcine) (Heparin (5000 Units/0.5 ml)) 5,000 unit BID SC Last administered on 12/10/16 08:04; Admin Dose 5,000 UNIT; Start 12/08/16 at 09:00 Miscellaneous Information 1 ea NOTE XX ; Start 12/08/16 at 05:00 Glucose (Glutose) 15 gm Q15M PRN PO DECREASED GLUCOSE; Start 12/08/16 at 05:00 Glucose (Glutose) 22.5 gm Q15M PRN PO DECREASED GLUCOSE; Start 12/08/16 at 05:00 Dextrose (D50w Syringe) 25 ml Q15M PRN IV DECREASED GLUCOSE; Start 12/08/16 at 05:00 Dextrose (D50w Syringe) 50 ml Q15M PRN IV DECREASED GLUCOSE; Start 12/08/16 at 05:00 Glucagon (Glucagen) 1 mg Q15M PRN IM DECREASED GLUCOSE; Start 12/08/16 at 05:00 Glucose (Glutose) 15 gm Q15M PRN BUCCAL DECREASED GLUCOSE; Start 12/08/16 at 05: 00 Diagnostic Test (Pha) (Accucheck) 1 ea 02 XX Last administered on 12/09/16 02: 00; Admin Dose 1 EA; Start 12/09/16 at 02:00 Atorvastatin Calcium (Lipitor) 40 mg HS PO Last administered on 12/09/16 21:41 ; Admin Dose 40 MG; Start 12/08/16 at 21:00 Gabapentin (Neurontin) 300 mg BID PO Last administered on 12/10/16 08:00; Admin Dose 300 MG; Start 12/08/16 at 09:00 Clopidogrel Bisulfate (plaVIX) 75 mg DAILY PO Last administered on 12/10/16 08: 00; Admin Dose 75 MG; Start 12/08/16 at 09:00 Benazepril HCl (Lotensin) 20 mg BID PO Last administered on 12/10/16 08:00; Admin Dose 20 MG; Start 12/09/16 at 09:00 Carvedilol (Coreg) 25 mg BID PO Last administered on 12/10/16 08:01; Admin Dose 25 MG; Start 12/09/16 at 15:00 Insulin Glargine (Lantus) 16 unit DAILY@08 SC ; Start 12/11/16 at 08:00 Linagliptin (Tradjenta) 5 mg DAILY PO Last administered on 12/10/16 13:56; Admin Dose 5 MG; Start 12/10/16 at 13:30 ARPAN MCLEAN Dec 10, 2016 14:17
[2016-12-10] MEDS: ATORVASTATIN 40 MG TAB PO SCH (21:05)
[2016-12-10] MEDS ORDERED: ONDANSETRON 4 MG INJ IV PRN (21:30)
[2016-12-11] VITALS (9 sets, daily range): BP systolic 118–167; BP diastolic 65–149; PULSE 66–93; RESP 15–19
[2016-12-11] MEDS: ACCUCHECK XX SCH (02:00)
[2016-12-11 06:46] LABS: ADD SCAN DIFF NO
[2016-12-11 06:49] LABS: BASOPHILS % 0.3 % (0.0-2.0); EOSINOPHILS # 0.3 10^3/ul (0.0-0.5); EOSINOPHILS % 4.4 % (0.0-7.0); HEMATOCRIT 28.3 % (42.0-52.0); HEMOGLOBIN 9.7 g/dl (14.0-18.0); LYMPHOCYTES # 2.1 10^3/ul (0.8-2.9); LYMPHOCYTES % 31.4 % (15.0-51.0); MEAN CORPUSCULAR HEMOGLOBIN 30.3 pg (29.0-33.0); MEAN CORPUSCULAR HGB CONC 34.3 g/dl (32.0-37.0); MEAN CORPUSCULAR VOLUME 88.4 fl (82.0-101.0); MEAN PLATELET VOLUME 10.8 fl (7.4-10.4); MONOCYTE # 0.6 10^3/ul (0.3-0.9); MONOCYTES % 8.7 % (0.0-11.0); NEUTROPHIL # 3.6 10^3/ul (1.6-7.5); NEUTROPHILS % 54.9 % (39.0-77.0); PLATELET COUNT 173 10^3/UL (140-415); RED CELL DISTRIBUTION WIDTH 12.5 % (11.5-14.5); WHITE BLOOD COUNT 6.5 10^3/ul (4.8-10.8)
[2016-12-11 07:02] LABS: POTASSIUM 4.4 mmol/L (3.5-5.1)
[2016-12-11 07:04] LABS: CREATININE 1.17 mg/dl (0.61-1.24)
[2016-12-11 07:05] LABS: CALCIUM 8.6 mg/dl (8.4-10.2)
[2016-12-11] MEDS ORDERED: INSULIN GLARGINE [LANtus] 3 ML PEN SC SCH ×2 (08:00)
[2016-12-11] MEDS: GABAPENTIN 300 MG CAP PO SCH (08:47)
[2016-12-11] MEDS: CLOPIDOGREL 75 MG TAB PO SCH (08:47)
[2016-12-11] MEDS: ASPIRIN 81 MG TAB PO SCH (08:47)
[2016-12-11] MEDS: BENAZEPRIL 20 MG TAB PO SCH (08:47)
[2016-12-11] MEDS: metFORMIN 850 MG TAB GTB SCH (08:48)
[2016-12-11] MEDS: LINAGLIPTIN 5 MG TABLET PO SCH (08:48)
[2016-12-11] MEDS: INSULIN ASPART [NOVOLOG] 3 ML PEN SC SCH ×4 (08:52→12:03)
[2016-12-11] MEDS: HEPARIN 5,000 UNIT/0.5 ML SYG SC SCH (08:53)
--- NOTE | 2016-12-11 13:16 | CONS ---
Date/Time of Note Date/Time of Note DATE: 12/11/16 TIME: 13:06 Assessment/Plan Assessment/Plan Problems: (1) Type 2 diabetes mellitus with hyperglycemia Status: Chronic Comment: Pt. requires multidose insulin injections, 40% basal, 60% bolus. Will add DPP-Kali med, tradjenta 5 mg/d. Cont. metformin. Change lantus to only 16 units sq qam and increase novolog to 8 units sq qac. Will follow and titrate doses to ideal glycemic control. Qualifiers: Qualified Code: E11.65 - Type 2 diabetes mellitus with hyperglycemia, with long-term current use of insulin Consultation Date/Type/Reason Admit Date/Time Dec 08, 2016 at 03:03 Date of Consultation: Dec 11, 2016 Type of Consultation: Endocrinology Reason for Consultation T2DM out of control (OOC) Referring Provider: ARPAN MCLEAN Hx of Present Illness 61 y/o H M w/ h/o T2DM, HTN, hyperlipidemia, TIA, CAD, in [facility] until 3 days ago when he developed high BP and hyperglycemia at home. Took extra meds but was unable to bring it down. Developed L sided CP he associated w/ his heart. Pain radiated to L arm. Pt. took NTG but just gave him DAIZ. Decided to come to [facility]. In ER BP > 220/100. Troponins have been negative. Glucoses have been OOC and A1c > 13%. Endo consulted. Constitutional: improved, no complaints Eyes: no complaints ENT: no complaints Respiratory: no complaints Cardiovascular: chest pain Gastrointestinal: no complaints Genitourinary: no complaints Musculoskeletal: no complaints Neurologic: no complaints Psychological: nl mood/affect, no complaints Past Medical History Medical History: coronary artery disease, diabetes, high cholesterol, hypertension, other (TIA) Past Surgical History Past Surgical Hx: cholecystectomy, other (hernia repair) Family History Significant Family History: heart disease (mother), cancer (metastatic in brothers), diabetes (both parents, brothers), renal disease (brother), vascular disease (brother) Social History b. 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, , 4 children Alcohol Use: none Smoking Status: Never smoker Drug Use: none Exam/Review of Systems Vital Signs Vitals VS - Last 72 Hours, by Label Date Time Temp Pulse Resp B/P Pulse Ox O2 Delivery O2 Flow Rate FiO2 12/11/16 09:02 66 12/11/16 08:08 97.9 76 18 167/81 97 12/11/16 04:40 66 12/11/16 04:00 97.8 72 15 125/69 97 12/11/16 00:00 97.7 80 15 118/65 96 12/11/16 00:00 93 12/10/16 20:00 74 12/10/16 19:35 98.2 78 20 159/83 99 12/10/16 16:34 152/80 12/10/16 16:00 72 12/10/16 15:49 98.7 74 18 179/83 99 12/10/16 12:31 65 12/10/16 12:10 97.6 68 17 134/72 98 12/10/16 08:21 97.9 69 17 159/78 97 12/10/16 08:00 68 12/10/16 04:22 69 12/10/16 04:10 98.1 78 14 126/68 98 Room Air 78 12/10/16 00:32 78 12/10/16 00:00 98.1 87 14 110/56 97 Room Air 87 12/09/16 20:29 75 12/09/16 20:00 97.9 84 14 116/58 95 Room Air 84 12/09/16 16:51 80 12/09/16 15:40 98.2 78 16 126/71 96 12/09/16 12:59 80 129/68 12/09/16 12:42 73 12/09/16 11:44 98.1 81 18 182/88 99 12/09/16 08:22 68 12/09/16 07:31 97.8 69 18 166/78 95 12/09/16 04:18 61 12/09/16 04:00 97.7 66 16 159/87 99 Room Air 66 12/09/16 00:16 71 12/09/16 00:05 99.4 74 17 130/68 96 Room Air 74 12/08/16 20:21 96 12/08/16 20:14 98.5 85 17 132/69 97 12/08/16 20:10 98.5 85 17 132/69 97 12/08/16 16:14 80 12/08/16 16:10 98.1 80 19 115/62 97 Vital Signs Date Time Temp Pulse Resp B/P Pulse Ox O2 Delivery O2 Flow Rate FiO2 12/11/16 09:02 66 12/11/16 08:08 97.9 18 167/81 97 12/10/16 04:10 Room Air Intake and Output 12/10/16 12/10/16 12/11/16 15:00 23:00 07:00 Intake Total 850 ml 600 ml Balance 850 ml 600 ml Exam Constitutional: alert, oriented, well developed Psych: nl mood/affect, no complaints Eyes: EOMI, PERRL, nl conjunctiva, nl lids, nl sclera ENMT: mucosa pink and moist, nl external ears & nose Neck: non-tender, supple, No bruits, No masses, No thyromegaly Respiratory: clear to auscultation, normal air movement Cardiovascular: nl pulses, regular rate and rhythm, No edema, No murmurs/extra sounds, No rub Gastrointestinal: bowel sounds, nl liver, spleen, non-tender, soft, No mass, No rebound or guarding Musculoskeletal: nl extremities to inspection, nl gait and stance Extremities: normal pulses, No clubbing, No cyanosis, No edema Neurological: [employer] II-XII intact, nl mental status, nl speech, nl strength Additional Comments Bedside Glucose - 72 Hours Test 12/08/16 17:10 12/08/16 22:50 12/09/16 02:34 12/09/16 07:48 Bedside Glucose 88mg/dL (70-220) 217mg/dL (70-220) 250mg/dL (70-220) H 309mg/dL (70-220) H Test 12/09/16 11:56 12/09/16 16:59 12/09/16 17:57 12/09/16 21:29 Bedside Glucose 413mg/dL (70-220) *H 85mg/dL (70-220) 123mg/dL (70-220) 131mg/dL (70-220) Test 12/10/16 07:13 12/10/16 11:44 12/10/16 15:05 12/10/16 15:19 Bedside Glucose 255mg/dL (70-220) H 317mg/dL (70-220) H 59mg/dL (70-220) L 53mg/dL (70-220) L Test 12/10/16 15:33 12/10/16 16:51 12/10/16 20:17 12/10/16 21:02 Bedside Glucose 78mg/dL (70-220) 79mg/dL (70-220) 58mg/dL (70-220) L 80mg/dL (70-220) Test 12/11/16 02:36 12/11/16 08:14 12/11/16 11:54 Bedside Glucose 130mg/dL (70-220) 181mg/dL (70-220) 209mg/dL (70-220) Results Result Diagram: 12/11/16 0630 12/11/16 0620 Results 24 hrs Laboratory Tests Test 12/10/16 15:05 12/10/16 15:19 12/10/16 15:33 12/10/16 16:51 Bedside Glucose 59 L 53 L 78 79 Test 12/10/16 20:17 12/10/16 21:02 12/11/16 02:36 12/11/16 06:20 Bedside Glucose 58 L 80 130 Anion Gap 10 Blood Urea Nitrogen 28 H Calcium Level 8.6 Carbon Dioxide Level 25 Chloride Level 107 Creatinine 1.17 Glucose Level 143 # Potassium Level 4.4 Sodium Level 138 Test 12/11/16 06:30 12/11/16 08:14 12/11/16 11:54 Basophils # 0.0 Basophils % 0.3 Eosinophils # 0.3 Eosinophils % 4.4 Hematocrit 28.3 L Hemoglobin 9.7 L Lymphocytes # 2.1 Lymphocytes % 31.4 Mean Corpuscular Hemoglobin 30.3 Mean Corpuscular Hemoglobin Concent 34.3 Mean Corpuscular Volume 88.4 Mean Platelet Volume 10.8 H Monocytes # 0.6 Monocytes % 8.7 Neutrophils # 3.6 Neutrophils % 54.9 Nucleated Red Blood Cells # 0.0 Nucleated Red Blood Cells % 0.0 Platelet Count 173 Red Blood Count 3.20 L Red Cell Distribution Width 12.5 White Blood Count 6.5 Bedside Glucose 181 209 Medications Medications Current Medications Aspirin (Aspirin) 81 mg DAILY PO Last administered on 12/11/16 08:47; Admin Dose 81 MG; Start 12/08/16 at 09:00 Hydralazine HCl (Apresoline) 10 mg Q6H PRN IV HTN Last administered on 12:32; Admin Dose 10 MG; Start 12/08/16 at 04:30 Morphine Sulfate (morphine) 3 mg Q4H PRN IV PAIN; Start 12/08/16 at 04:30 Heparin Sodium (Porcine) (Heparin (5000 Units/0.5 ml)) 5,000 unit BID SC Last administered on 12/11/16 08:53; Admin Dose 5,000 UNIT; Start 12/08/16 at 09:00 Miscellaneous Information 1 ea NOTE XX Last administered on 12/11/16 01:05; Admin Dose 1 EA; Start 12/08/16 at 05:00 Glucose (Glutose) 15 gm Q15M PRN PO DECREASED GLUCOSE; Start 12/08/16 at 05:00 Glucose (Glutose) 22.5 gm Q15M PRN PO DECREASED GLUCOSE; Start 12/08/16 at 05:00 Dextrose (D50w Syringe) 25 ml Q15M PRN IV DECREASED GLUCOSE; Start 12/08/16 at 05:00 Dextrose (D50w Syringe) 50 ml Q15M PRN IV DECREASED GLUCOSE; Start 12/08/16 at 05:00 Glucagon (Glucagen) 1 mg Q15M PRN IM DECREASED GLUCOSE; Start 12/08/16 at 05:00 Glucose (Glutose) 15 gm Q15M PRN BUCCAL DECREASED GLUCOSE; Start 12/08/16 at 05: 00 Diagnostic Test (Pha) (Accucheck) 1 ea 02 XX Last administered on 12/11/16 02: 00; Admin Dose 1 EA; Start 12/09/16 at 02:00 Atorvastatin Calcium (Lipitor) 40 mg HS PO Last administered on 12/10/16 21:05 ; Admin Dose 40 MG; Start 12/08/16 at 21:00 Gabapentin (Neurontin) 300 mg BID PO Last administered on 12/11/16 08:47; Admin Dose 300 MG; Start 12/08/16 at 09:00 Clopidogrel Bisulfate (plaVIX) 75 mg DAILY PO Last administered on 12/11/16 08: 47; Admin Dose 75 MG; Start 12/08/16 at 09:00 Benazepril HCl (Lotensin) 20 mg BID PO Last administered on 12/11/16 08:47; Admin Dose 20 MG; Start 12/09/16 at 09:00 Carvedilol (Coreg) 25 mg BID PO Last administered on 12/11/16 08:47; Admin Dose 25 MG; Start 12/09/16 at 15:00 Insulin Glargine (Lantus) 16 unit DAILY@08 SC Last administered on 12/11/16 08: 53; Admin Dose 16 UNIT; Start 12/11/16 at 08:00 Linagliptin (Tradjenta) 5 mg DAILY PO Last administered on 12/11/16 08:48; Admin Dose 5 MG; Start 12/10/16 at 13:30 Ondansetron HCl (Zofran Inj) 4 mg Q6H PRN IV NAUSEA AND/OR VOMITING Last administered on 12/10/16 22:11; Admin Dose 4 MG; Start 12/10/16 at 21:30 LING ANTOINE MD Dec 11, 2016 13:15
--- NOTE | 2016-12-11 16:26 | PDOCDIS ---
Discharge Instructions DIAGNOSIS Discharge Diagnosis: atypical chest pain. CONDITION Patient Condition: Stable HOME CARE INSTRUCTIONS: Special Diet: carb controlled diet FOLLOW UP/APPOINTMENTS Appointments Noé Bull MD Specialty: Internal Medicine Office Address: [address] [place], [place] [id number] Office OTHER ORDERS: Other Orders: 1. Take a carbohydrate controlled, low-cholesterol diet. 2. Take medications as per prescription. 3. Check blood sugars regularly. 4. Activities as tolerated. 5. Follow-up with your primary care physician in 2 weeks. If you do not have a primary care physician, please call Dr. Noé Bull's office. NELSON STEINER NP Dec 11, 2016 16:26
[2016-12-11] MEDS ORDERED: LANT3I SC (17:15)
[2016-12-11] MEDS ORDERED: NOVO3I SC (17:15)
[2016-12-11] MEDS ORDERED: CARV25TA79 PO (17:15)
--- NOTE | 2016-12-11 18:33 | DS ---
DATE OF ADMISSION: 12/08/2016 DATE OF DISCHARGE: 12/11/2016 FINAL DIAGNOSES: 1. Chest pain. Acute coronary syndrome ruled out. 2. Hypertensive urgency. 3. History of cerebrovascular accident. 4. Chronic kidney disease. 5. Type 2 diabetes mellitus. Uncontrolled. 6. Dyslipidemia. CONSULTATIONS: 1. Dr. Orestes Caicedo, cardiology. 2. Dr. Darwin Hernandez, Cardiology. 3. Dr. Orestes Gomez, endocrinology. HOSPITAL COURSE: This is a 61-year-old male with a past medical history of dyslipidemia, type 2 diabetes mellitus, hypertension and CVA who presented to the emergency room with chief complaint of left-sided chest pain that was rated 5/10 with some relief of chest pain with sublingual nitroglycerin, but recurrence of chest pain. In the emergency room, the patient was noticed to have a blood pressure of 224/101. The patient's troponins were negative. The patient's 12-lead EKG did not show any ST-T wave abnormalities. Provided the patient's history of present illness, his comorbidities and the diagnostic findings, a clinical decision was made to admit the patient to inpatient setting to have him further evaluated. The patient was admitted to inpatient telemetry floor. Serial troponins were ordered. Cardiology consult was obtained. The patient was ruled out for any underlying acute coronary syndrome. The patient's serial troponins remained negative. The patient had a recent 2-D echocardiogram done on 06/02/2016 and hence a 2-D echocardiogram was not repeated. The patient's chest pain could have been most probably secondary to hypertensive urgency. As mentioned earlier, the patient had uncontrolled blood pressure in the emergency room. The patient's blood pressure was lowered gradually to obtain optimal blood pressure control. The patient has history of CVA. The patient was maintained on antiplatelet therapy. The patient has chronic kidney disease. The patient was noticed to have a creatinine of 1.77 upon admission and it has been improving throughout the patient's hospital course to a creatinine of 1.17 by the end of the patient's hospital stay. The patient has underlying dyslipidemia. The patient was maintained on statins for the same. The patient had underlying type 2 diabetes mellitus that was uncontrolled. Hence, the patient was seen by Endocrinology and education department chair and the patient's insulin dosing and oral medications were adjusted to obtain optimal blood sugar control. The patient was also noticed to have normocytic normochromic anemia. The patient's H and H remained stable. The etiology of the patient's anemia remained unclear. The patient had a stable hospital course. The patient was cleared by consultants to be discharged home. The patient denied any complaints at the time of discharge. The patient's blood pressure was well controlled at the time of discharge. DISCHARGE DISPOSITION/PLAN: The patient will be discharged home today. The patient was instructed to take a carbohydrate controlled, low cholesterol diet. The patient was instructed to take medications as per prescription. He was instructed to check his blood sugars regularly. He was instructed to resume activities as tolerated. He was instructed to follow up with his primary care physician in 2 weeks and if he does not have a primary care physician to please call Dr. Noé Bull's office. The patient was also instructed to call 911 or go to the nearest emergency room if he has any chest pain or dyspnea. The patient verbalized understanding of his discharge instructions. CONDITION AT DISCHARGE: Stable. DISCHARGE MEDICATIONS: 1. Coreg 25 mg p.o. b.i.d. 2. NovoLog insulin 8 units subcutaneously with meals. 3. Lantus insulin 16 units subcutaneously with meals. 4. Atorvastatin 40 mg p.o. at bedtime. 5. Plavix 75 mg p.o. daily. 6. Gabapentin 300 mg p.o. b.i.d. 7. Metformin 850 mg p.o. b.i.d. 8. Omeprazole 20 mg p.o. daily. 9. Quinapril 40 mg p.o. daily. 10. Januvia 100 mg p.o. daily. PERTINENT LABORATORY AND DIAGNOSTIC DATA: 1. Brain CT scan. Chronic changes of atrophy and small vessel disease. 2. Chest x-ray. No acute cardiopulmonary findings. 3. Latest CBC: WBC 6.5, hemoglobin 9.7, hematocrit 28.3, platelet count 173. 4. Latest BMP: Sodium 130, potassium 4.4, chloride 107, carbon dioxide 20, anion gap 10, BUN 20, creatinine 1.17, glucose 143, calcium 8.6. 5. Hemoglobin A1c 13.3. 6. Fasting lipid panel: Triglycerides 190, total cholesterol 121, LDL 51, HDL 32. At this time, I would like to thank all the consultants for seeing the patient and providing clinical recommendations. The case and management of this patient was fully discussed with Dr. Angel. Approximately 35 minutes was spent on coordinating the discharge on this patient. NELSON ANGEL MD, AM/NOMI Conf#: [id number] DID#: [id number]
== END 2016-12-11 18:15 | disposition home or self-care (01) | DRG 313 ==
LOC: E/R 01:18 → MS4 03:03
PROVIDERS: ADMIT Internal Medicine; ATTEND Internal Medicine
DX: R07.89 Other chest pain (principal); E11.22 Type 2 diabetes mellitus with diabetic chronic kidney disease; I16.0 Hypertensive urgency; Z86.73 Personal history of transient ischemic attack (TIA), and cerebral infarction without residual deficits; I12.9 Hypertensive chronic kidney disease with stage 1 through stage 4 chronic kidney disease, or unspecified chronic kidney disease; N18.9 Chronic kidney disease, unspecified; Z79.4 Long term (current) use of insulin; E78.5 Hyperlipidemia, unspecified; E11.65 Type 2 diabetes mellitus with hyperglycemia
CPT/HCPCS: 36415; 70450; 71010; 80048; 80053; 80061; 81003; 82947; 82962; 83036; 83690; 83735; 84100; 84484; 85025; 85610; 85730; 93005; J0360; J1815; J2405

== ENCOUNTER 2017-11-02 14:06 | Inpatient (IN) | END 2017-11-03 17:30 | disposition home or self-care (01) | DRG 305 ==

== ENCOUNTER 2017-12-08 19:48 | Inpatient (IN) | END 2017-12-12 12:43 | disposition home or self-care (01) | DRG 304 ==

== ENCOUNTER 2018-03-24 18:22 | Inpatient (IN) | END 2018-03-25 16:50 | disposition home or self-care (01) | DRG 313 ==

== ENCOUNTER 2018-05-29 03:51 | Inpatient (IN) | END 2018-05-29 17:06 | disposition home or self-care (01) | DRG 69 ==

== ENCOUNTER 2018-07-31 18:25 | Emergency (ER) | END 2018-07-31 22:36 | disposition left against medical advice (07) ==

== ENCOUNTER 2018-08-01 15:41 | Inpatient (IN) | END 2018-08-05 18:00 | disposition home or self-care (01) | DRG 673 ==

== ENCOUNTER 2019-06-23 20:16 | Emergency (ER) | payer MEDICARE, OTHER ==
[~2019-06-23] VITALS: Ht 162.6 cm; Wt 62.3 kg
[~2019-06-23 20:16] MED LIST changes: +AMLO-147 PO; +ASPI-903 PO; +ATOR20TA38 PO; -ATOR40TA68 PO; +BUSP5TAB2 PO; +CALC0.2511 PO; +CALC0.255 PO; +CARV25TA79 PO; -CARV3.1260 PO; +CHOL100062 PO; -CLOP75TA27 PO; +FER325 PO; +FURO40TA4 PO; +HYDR-3672 PO; +HYDR-843 PO; +IMIP10TA2 PO; +INSU100C SQ; +INSU100I12 SQ; +LANT3I SC; +LORA10TA3 PO; -METF-480 PO; +NIFE60TA18 PO; +NITR0.4T32 SL; -NITR0.4T6 SL; +OMEP20CA17 PO; -OMEP20CA9 PO; -QUIN40TA PO; +SEVE800T7 PO; +SIMV10TA PO; -SITA100T8 PO
[2019-06-23 20:25] VITALS: Ht 162.6 cm; Wt 62.3 kg
[2019-06-23] MEDS ORDERED: OXYCODONE/ACETAMINOPHEN (5/325) TAB PO ONE (21:30)
[2019-06-24 00:14] VITALS: BP 168/89; PULSE 78; RESP 20
== END 2019-06-24 00:15 | disposition home or self-care (01) ==
LOC: E/R 20:16
DX: R07.9 Chest pain, unspecified (principal); I13.2 Hypertensive heart and chronic kidney disease with heart failure and with stage 5 chronic kidney disease, or end stage renal disease; I50.9 Heart failure, unspecified; N18.6 End stage renal disease; E11.9 Type 2 diabetes mellitus without complications; Z79.4 Long term (current) use of insulin; Z79.82 Long term (current) use of aspirin; Z86.73 Personal history of transient ischemic attack (TIA), and cerebral infarction without residual deficits
CPT/HCPCS: 36415; 71045; 80053; 83690; 84484; 85025; 93005